=== PATIENT | female | born 1960 | race Asian ===

== ENCOUNTER 2017-05-20 09:55 | Outpatient (CLI) | payer OTHER ==
[~2017-05-20 09:55] MED LIST: CALTRATE 601 PO; FOLI1TAB26 PO; GLIM2TAB PO; HYDROXYCHLOR200 MG OR; METO100T37 PO; NABU750T; OMEPRAZOLE20 M1 OR; TRAM50TA PO; TREXALL7.5 MG OR
[2017-05-20 12:04] LABS: POTASSIUM 3.6 mmol/L (3.6-5.2); SODIUM 139 mmol/L (136-145)
== END 2017-05-20 19:31 | disposition home or self-care (01) ==
LOC: LABW 09:55
PROVIDERS: Internal Medicine
DX: E11.9 Type 2 diabetes mellitus without complications (principal)
CPT/HCPCS: 36415; 80053; 80061; 81000; 82043; 82570; 83036; 84443

== ENCOUNTER 2017-05-28 08:58 | Outpatient (CLI) | payer OTHER | END 2017-05-28 19:50 | disposition home or self-care (01) | LOC: RESP 08:58 | DX: Z12.31 Encounter for screening mammogram for malignant neoplasm of breast (principal); Z13.820 Encounter for screening for osteoporosis; J44.9 Chronic obstructive pulmonary disease, unspecified; M85.88 Other specified disorders of bone density and structure, other site | CPT/HCPCS: G0202-TC ==

== ENCOUNTER 2018-04-28 09:47 | Outpatient (CLI) | payer OTHER ==
[2018-04-28 10:03] LABS: PLATELET COUNT 273 K/uL (152-353)
[2018-04-28 10:53] LABS: POTASSIUM 3.5 mmol/L (3.6-5.2)
== END 2018-04-28 23:46 | disposition home or self-care (01) ==
LOC: LABW 09:47
PROVIDERS: Internal Medicine Rheumatology
DX: M06.89 Other specified rheumatoid arthritis, multiple sites (principal); Z79.899 Other long term (current) drug therapy; M81.0 Age-related osteoporosis without current pathological fracture; G47.33 Obstructive sleep apnea (adult) (pediatric); M75.42 Impingement syndrome of left shoulder
CPT/HCPCS: 36415; 80053; 85027; 86140

== ENCOUNTER 2019-02-24 12:12 | Outpatient (CLI) | payer OTHER ==
[2019-02-24 12:46] LABS: PLATELET COUNT 274 K/uL (152-353)
[2019-02-24 13:56] LABS: POTASSIUM 4.2 mmol/L (3.6-5.2)
== END 2019-02-24 19:14 | disposition home or self-care (01) ==
LOC: LABW 12:12
PROVIDERS: Internal Medicine
DX: E11.9 Type 2 diabetes mellitus without complications (principal); M19.90 Unspecified osteoarthritis, unspecified site; E55.9 Vitamin D deficiency, unspecified
CPT/HCPCS: 36415; 80053; 80061; 81000; 82043; 82306; 82570; 83036; 84443; 85027

== ENCOUNTER 2020-10-31 10:45 | Outpatient (CLI) | payer OTHER ==
[2020-10-31 11:56] LABS: PLATELET COUNT 277 K/uL (152-353)
[2020-10-31 12:30] LABS: POTASSIUM 4.4 mmol/L (3.6-5.2)
== END 2020-10-31 23:19 | disposition home or self-care (01) ==
LOC: LABW 10:45
PROVIDERS: ATTEND Internal Medicine
DX: E11.9 Type 2 diabetes mellitus without complications (principal)
CPT/HCPCS: 36415; 80053; 80061; 81000; 82043; 83036; 84439; 84443; 85027

== ENCOUNTER 2020-12-18 09:59 | Outpatient (CLI) | payer OTHER ==
[2020-12-18 10:49] LABS: PLATELET COUNT 262 K/uL (152-353)
[2020-12-18 10:50] LABS: POTASSIUM 4.4 mmol/L (3.6-5.2)
== END 2020-12-18 19:20 | disposition home or self-care (01) ==
LOC: LABW 09:59
PROVIDERS: ATTEND Internal Medicine
DX: Z00.00 Encounter for general adult medical examination without abnormal findings (principal); E11.9 Type 2 diabetes mellitus without complications
CPT/HCPCS: 36415; 80053; 80061; 81000; 82043; 83036; 84439; 84443; 85027

== ENCOUNTER 2021-04-25 10:02 | Outpatient (CLI) | payer OTHER ==
[2021-04-25 10:29] LABS: PLATELET COUNT 260 K/uL (152-353)
[2021-04-25 10:57] LABS: POTASSIUM 3.6 mmol/L (3.6-5.2)
== END 2021-04-25 21:29 | disposition home or self-care (01) ==
LOC: LABW 10:02
PROVIDERS: ATTEND Internal Medicine Rheumatology
DX: M06.89 Other specified rheumatoid arthritis, multiple sites (principal); M85.89 Other specified disorders of bone density and structure, multiple sites; Z79.899 Other long term (current) drug therapy; E55.9 Vitamin D deficiency, unspecified
CPT/HCPCS: 36415; 80053; 82306; 85027; 86140

== ENCOUNTER 2021-08-01 09:05 | Outpatient (CLI) | payer OTHER ==
[2021-08-01 10:02] LABS: PLATELET COUNT 324 K/uL (152-353)
[2021-08-01 10:21] LABS: POTASSIUM 3.9 mmol/L (3.6-5.2)
== END 2021-08-01 21:50 | disposition home or self-care (01) ==
LOC: US 09:05
PROVIDERS: ATTEND Podiatrist
DX: M79.604 Pain in right leg (principal); E11.9 Type 2 diabetes mellitus without complications
CPT/HCPCS: 36415; 80053; 80061; 81000; 82043; 83036; 84439; 84443; 85027

== ENCOUNTER 2021-12-03 16:46 | Outpatient (CLI) | payer OTHER ==
[2021-12-03 16:59] LABS: PLATELET COUNT 292 K/uL (152-353)
[2021-12-03 17:17] LABS: POTASSIUM 4.1 mmol/L (3.6-5.2)
== END 2021-12-03 18:57 | disposition home or self-care (01) ==
LOC: LAB 16:46
PROVIDERS: ATTEND Internal Medicine
DX: E11.9 Type 2 diabetes mellitus without complications (principal)
CPT/HCPCS: 80053; 81000; 82043; 83036; 84439; 84443; 85027

== ENCOUNTER 2023-06-10 12:12 | Outpatient (CLI) | payer OTHER ==
[2023-06-10 12:53] LABS: PLATELET COUNT 324 K/uL (152-353)
[2023-06-10 13:04] LABS: POTASSIUM 4.2 mmol/L (3.6-5.2)
== END 2023-06-10 19:05 | disposition home or self-care (01) ==
LOC: LABW 12:12
PROVIDERS: ATTEND Internal Medicine Hematology & Oncology
DX: D72.828 Other elevated white blood cell count (principal); R10.9 Unspecified abdominal pain; R19.07 Generalized intra-abdominal and pelvic swelling, mass and lump
CPT/HCPCS: 36415; 80053; 85027